=== PATIENT | female | born 1955 | race Caucasian/White ===

== ENCOUNTER 2017-09-18 07:24 | Outpatient (CLI) | payer OTHER ==
--- NOTE | 2017-09-24 12:11 | Mammography Report ---
EXAM: Digital bilateral screening mammogram 09/18/2017. CLINICAL INDICATION: A 61-year-old for screening. COMPARISON: 04/22, 10/22, 10/21, 02/15, 08/17, 02/14, 01/15. TECHNIQUE: Routine CC and MLO projections were obtained of the breasts; bilateral laterally exaggerated craniocaudal views. FINDINGS: The breasts again demonstrate heterogeneously dense fibroglandular parenchyma bilaterally. Coarse and punctate, typically benign calcifications are present. No suspicious masses, clustered microcalcifications, or regions of architectural distortion are identified. IMPRESSION: Benign findings. RECOMMENDATIONS: Routine annual screening unless otherwise clinically indicated. BIRADS category 2 - Benign findings. STANDARD QUALIFYING STATEMENTS 1. This examination was reviewed with the aid of Computed Aided Detection (CAD). 2. A negative x-ray report should not delay biopsy if a dominant or clinically suspicious mass is present. More than 5% of cancers are not identified by x-ray. 3. Dense breasts may obscure an underlying neoplasm. TD: 09/19/2017 15:41 VICTORIA
== END 2017-09-18 07:25 | disposition home or self-care (01) ==
LOC: DI 07:24
PROVIDERS: ATTEND Specialist
DX: Z12.31 Encounter for screening mammogram for malignant neoplasm of breast (principal)
CPT/HCPCS: 77067

== ENCOUNTER 2018-05-02 08:05 | Outpatient (CLI) | payer OTHER | END 2018-05-02 08:06 | disposition home or self-care (01) | LOC: LAB 08:05 | PROVIDERS: ATTEND Physician Assistant | DX: R74.8 Abnormal levels of other serum enzymes (principal) | CPT/HCPCS: 36415; 80076; 82728; 83540; 84443; 84466; 85025; 86317; 86704; 86708; 86803; 87340 ==

== ENCOUNTER 2018-05-03 10:58 | Outpatient (CLI) | payer OTHER ==
[2018-05-03 19:08] LABS: BASOPHILS % (AUTO) 0.6 %; EOSINOPHILS # (AUTO) 0.1 10^3/uL (0.0-0.7); EOSINOPHILS % (AUTO) 1.4 %; LYMPHOCYTES # (AUTO) 1.7 10^3/uL (1.5-3.5); LYMPHOCYTES % (AUTO) 36.3 %; MEAN CORPUSCULAR HEMOGLOBIN 36.1 pg (27.0-31.0); MEAN CORPUSCULAR HGB CONC 34.7 g/dL (32.0-36.0); MEAN CORPUSCULAR VOLUME 104.1 fL (81.0-99.0); MEAN PLATELET VOLUME 9.1 fL (7.9-10.8); MONOCYTES # (AUTO) 0.2 10^3/uL (0.0-1.0); MONOCYTES % (AUTO) 4.6 %; NEUTROPHILS # (AUTO) 2.6 10^3/uL (1.5-6.6); NEUTROPHILS % (AUTO) 57.1 %; PLT - PLATELET COUNT 223 10^3/uL (130-450); RED BLOOD COUNT 3.88 10^6/uL (4.20-5.40); RED CELL DISTRIBUTION WIDTH 13.1 % (12.0-15.0); WHITE BLOOD COUNT 4.6 x10^3/uL (4.8-10.8)
[2018-05-03 19:55] LABS: THYROID STIMULATING HORMONE 1.29 uIU/mL (0.34-5.60)
[2018-05-03 19:59] LABS: FERRITIN 390.5 ng/mL (11.0-306.8)
[2018-05-03 20:07] LABS: BILIRUBIN,DIRECT 0.2 mg/dL (0.1-0.5); BILIRUBIN,TOTAL 2.2 mg/dL (0.2-1.0); TOTAL PROTEIN 6.8 g/dL (6.7-8.2)
[2018-05-04 13:16] LABS: HEPATITIS A AB TOTAL(IMMUNITY) REACTIVE (NON-REACTIVE); HEPATITIS B CORE AB TOTAL NON-REACTIVE (NON-REACTIVE); HEPATITIS B SURFACE ANTIGEN NON-REACTIVE (NON-REACTIVE); HEPATITIS C ANTIBODY NON-REACTIVE (NON-REACTIVE)
== END 2018-05-03 10:59 | disposition home or self-care (01) ==
LOC: LAB.N 10:58
PROVIDERS: ATTEND Physician Assistant
DX: R74.8 Abnormal levels of other serum enzymes (principal)
CPT/HCPCS: 36415; 80076; 82728; 83540; 84443; 84466; 85025; 86317; 86704; 86708; 86803; 87340

== ENCOUNTER 2018-05-16 08:00 | Outpatient (CLI) | payer OTHER ==
[2018-05-16 13:22] LABS: ALBUMIN 4.4 g/dL (3.2-5.5); ALBUMIN/GLOBULIN RATIO 1.9 (1.0-2.2); ALKALINE PHOSPHATASE 118 IU/L (42-121); ALT ALANINE AMINOTRANSFERASE 62 IU/L (10-60); AST ASPARTATE AMINOTRANSFERASE 51 IU/L (10-42); BILIRUBIN,TOTAL 1.9 mg/dL (0.2-1.0); BUN - BLOOD UREA NITROGEN 15 mg/dL (6-20); CALCIUM 9.5 mg/dL (8.5-10.3); CARBON DIOXIDE - CO2 28 mmol/L (21-32); CHLORIDE 101 mmol/L (101-111); CHOL/HDL RATIO 4.3 (<4.4); CHOLESTEROL 136 mg/dL; CREATININE 1.1 mg/dL (0.4-1.0); GFR - MDRD 50 (>89); GLUCOSE 104 mg/dL (70-100); HDL CHOLESTEROL 32 mg/dL; LDL CHOLESTEROL,CALCULATED 64 mg/dL; SODIUM 139 mmol/L (135-145); TOTAL PROTEIN 6.7 g/dL (6.7-8.2); URIC ACID 7.9 mg/dL (2.6-7.2); VLDL CHOLESTEROL 40 mg/dL
== END 2018-05-16 08:01 | disposition home or self-care (01) ==
LOC: LAB.N 08:00
PROVIDERS: ATTEND Physician Assistant
DX: I10 Essential (primary) hypertension (principal); R73.01 Impaired fasting glucose; E78.2 Mixed hyperlipidemia; E66.9 Obesity, unspecified
CPT/HCPCS: 36415; 80053; 80061; 83721; 84550

== ENCOUNTER 2018-06-11 08:00 | Outpatient (CLI) | payer OTHER ==
[2018-06-11 19:30] LABS: ALBUMIN 4.4 g/dL (3.2-5.5); BILIRUBIN,DIRECT 0.3 mg/dL (0.1-0.5); BILIRUBIN,TOTAL 1.5 mg/dL (0.2-1.0)
[2018-06-11 20:16] LABS: FOLATE > 49.60 ng/mL (5.90 - >24.8)
== END 2018-06-11 08:01 | disposition home or self-care (01) ==
LOC: LAB.N 08:00
PROVIDERS: ATTEND Physician Assistant
DX: R10.9 Unspecified abdominal pain (principal); R74.8 Abnormal levels of other serum enzymes
CPT/HCPCS: 36415; 80076; 82607; 82746

== ENCOUNTER 2018-11-07 09:00 | Outpatient (CLI) | payer OTHER ==
--- NOTE | 2018-11-08 09:14 | Mammography Report ---
Reason: SCREENING MAMMO Procedure Date: 11/07/2018 Accession Number: [id number] / [id number] Procedure: [facility] - Screening Mammo w/Jay CPT Code: FULL RESULT: EXAM: Screening Mammo w/Jay DATE: 11/07/2018 9:29 AM CLINICAL HISTORY: Screening encounter. No reported risk factors. TECHNIQUE: Bilateral CC, laterally exaggerated CC, MLO views were obtained. COMPARISON: 09/18/2017 through 10/10/2013. FINDINGS: The breasts demonstrate scattered fibroglandular densities bilaterally. Coarse typically benign calcifications are again seen. No suspicious masses, clustered microcalcifications, or regions of architectural distortion are identified. IMPRESSION: Benign findings RECOMMENDATION: Routine annual screening unless otherwise clinically indicated. BIRADS CATEGORY 2: Benign findings STANDARD QUALIFYING STATEMENTS: 1. This examination was not reviewed with the aid of Computer-Aided Detection (CAD). 2. A negative or benign imaging report should not preclude biopsy if clinically suspicious findings are present. 3. Dense breasts may obscure an underlying neoplasm. 4. This examination was reviewed with the aid of 3D breast imaging (tomosynthesis).
== END 2018-11-07 09:01 | disposition home or self-care (01) ==
LOC: DI 09:00
DX: Z12.31 Encounter for screening mammogram for malignant neoplasm of breast (principal)
CPT/HCPCS: 77063; 77067

== ENCOUNTER 2018-12-27 08:50 | Outpatient (CLI) | payer OTHER ==
[2018-12-27 13:15] LABS: ALBUMIN 4.3 g/dL (3.2-5.5); BILIRUBIN,DIRECT 0.2 mg/dL (0.1-0.5); BILIRUBIN,TOTAL 2.1 mg/dL (0.2-1.0); TOTAL PROTEIN 6.7 g/dL (6.7-8.2)
== END 2018-12-27 23:59 | disposition home or self-care (01) ==
LOC: LAB.N 08:50
PROVIDERS: ATTEND Physician Assistant
DX: R74.8 Abnormal levels of other serum enzymes (principal)
CPT/HCPCS: 36415; 80076

== ENCOUNTER 2019-08-30 11:09 | Outpatient (CLI) | payer OTHER ==
[2019-08-30 11:38] LABS: ALBUMIN 4.6 g/dL (3.2-5.5); BILIRUBIN,DIRECT 0.3 mg/dL (0.1-0.5); BILIRUBIN,TOTAL 2.3 mg/dL (0.2-1.0); TOTAL PROTEIN 7.2 g/dL (6.7-8.2)
== END 2019-08-30 11:10 | disposition home or self-care (01) ==
LOC: LAB 11:09
PROVIDERS: ATTEND Physician Assistant
DX: R74.8 Abnormal levels of other serum enzymes (principal)
CPT/HCPCS: 36415; 80076

== ENCOUNTER 2019-09-24 08:18 | Outpatient (CLI) | payer OTHER ==
[2019-09-24 09:09] LABS: ALBUMIN 4.4 g/dL (3.2-5.5); BILIRUBIN,DIRECT 0.2 mg/dL (0.1-0.5); TOTAL PROTEIN 7.4 g/dL (6.7-8.2)
== END 2019-09-24 08:19 | disposition home or self-care (01) ==
LOC: LAB 08:18
PROVIDERS: ATTEND Physician Assistant
DX: K76.0 Fatty (change of) liver, not elsewhere classified (principal); R74.8 Abnormal levels of other serum enzymes
CPT/HCPCS: 36415; 80076

== ENCOUNTER 2020-04-05 08:13 | Outpatient (CLI) | payer OTHER ==
[2020-04-05 08:57] LABS: HGB - HEMOGLOBIN 14.6 g/dL (12.0-16.0); MEAN CORPUSCULAR HEMOGLOBIN 34.8 pg (27.0-31.0); MEAN CORPUSCULAR HGB CONC 35.4 g/dL (32.0-36.0); MEAN CORPUSCULAR VOLUME 98.3 fL (81.0-99.0); MEAN PLATELET VOLUME 10.1 fL (7.9-10.8); RED BLOOD COUNT 4.2 10^6/uL (4.20-5.40); RED CELL DISTRIBUTION WIDTH 12.3 % (12.0-15.0); WHITE BLOOD COUNT 4.6 x10^3/uL (4.8-10.8)
[2020-04-05 09:11] LABS: ALBUMIN 4.3 g/dL (3.2-5.5); BILIRUBIN,TOTAL 1.7 mg/dL (0.2-1.0); CALCIUM 9.5 mg/dL (8.5-10.3); CREATININE 1.2 mg/dL (0.4-1.0); TOTAL PROTEIN 6.5 g/dL (6.7-8.2)
[2020-04-05 09:17] LABS: BILIRUBIN,DIRECT 0.3 mg/dL (0.1-0.5); BILIRUBIN,INDIRECT 1.3 mg/dL; BILIRUBIN,TOTAL 1.6 mg/dL (0.2-1.0); CHOL/HDL RATIO 5.3 (<4.4); CHOLESTEROL 174 mg/dL; HDL CHOLESTEROL 33 mg/dL; LDL CHOLESTEROL,CALCULATED 95 mg/dL; LDL/HDL RATIO 2.9 (<4.4); VLDL CHOLESTEROL 46 mg/dL
== END 2020-04-05 08:14 | disposition home or self-care (01) ==
LOC: LAB 08:13
PROVIDERS: ATTEND Nurse Practitioner Family
DX: K76.0 Fatty (change of) liver, not elsewhere classified (principal); R79.89 Other specified abnormal findings of blood chemistry; R74.8 Abnormal levels of other serum enzymes
CPT/HCPCS: 36415; 80053; 80061; 80076; 82247; 82248; 83721; 85027

== ENCOUNTER 2020-05-20 15:46 | Outpatient (CLI) | payer OTHER ==
[2020-05-20 16:01] LABS: BILIRUBIN,URINE NEGATIVE (NEGATIVE); GLUCOSE, URINE (UA) NEGATIVE (NEGATIVE); KETONES,URINE (UA) NEGATIVE (NEGATIVE); LEUKOCYTE ESTERASE, URINE NEGATIVE (NEGATIVE); NITRITE,URINE NEGATIVE (NEGATIVE); OCCULT BLOOD,URINE NEGATIVE (NEGATIVE); PH,URINE 5.5 PH (5.0-7.5); PROTEIN,URINE NEGATIVE (NEGATIVE); UROBILINOGEN,URINE 1 (NORMAL) E.U./dL (NORMAL)
[2020-05-20 16:08] LABS: CLARITY,URINE CLEAR (CLEAR)
[2020-05-20 16:09] LABS: BACTERIA,URINE Few /HPF (None Seen); RBC,URINE None Seen /HPF (0-5); SQUAMOUS EPITHELIAL CELL,UR MANY Squamous (<= Few)
== END 2020-05-20 15:47 | disposition home or self-care (01) ==
LOC: LAB 15:46
PROVIDERS: ATTEND Nurse Practitioner Family
DX: R10.2 Pelvic and perineal pain (principal)
CPT/HCPCS: 81001

== ENCOUNTER 2020-08-09 14:07 | Outpatient (CLI) | payer OTHER ==
[2020-08-09 14:58] LABS: CALCIUM 9.8 mg/dL (8.5-10.3); CREATININE 1.1 mg/dL (0.4-1.0)
== END 2020-08-09 14:08 | disposition home or self-care (01) ==
LOC: LAB 14:07
PROVIDERS: ATTEND Nurse Practitioner Family
DX: R94.4 Abnormal results of kidney function studies (principal)
CPT/HCPCS: 36415; 80048

== ENCOUNTER 2020-09-20 08:24 | Outpatient (CLI) | payer OTHER ==
[2020-09-20 09:52] LABS: ALBUMIN 4.2 g/dL (3.2-5.5); BILIRUBIN,DIRECT 0.3 mg/dL (0.1-0.5); BILIRUBIN,TOTAL 2.3 mg/dL (0.2-1.0); TOTAL PROTEIN 6.7 g/dL (6.7-8.2)
== END 2020-09-20 08:25 | disposition home or self-care (01) ==
LOC: LAB 08:24
PROVIDERS: ATTEND Physician Assistant
DX: R74.8 Abnormal levels of other serum enzymes (principal); K76.0 Fatty (change of) liver, not elsewhere classified
CPT/HCPCS: 36415; 80076; 82247; 82248

== ENCOUNTER 2020-09-24 08:55 | Outpatient (CLI) | payer OTHER | END 2020-09-24 08:56 | disposition home or self-care (01) | LOC: LAB 08:55 | PROVIDERS: ATTEND Physician Assistant | DX: R74.8 Abnormal levels of other serum enzymes (principal) | CPT/HCPCS: 82947 ==

== ENCOUNTER 2020-10-20 18:56 | Outpatient (CLI) | payer OTHER ==
--- NOTE | 2020-10-21 12:28 | Ultrasound Report ---
PROCEDURE: Retroperitoneal INDICATIONS: HX OF UTI TECHNIQUE: Real-time scanning was performed of the retroperitoneal organs, with image documentation. COMPARISON: None. FINDINGS: Kidneys: Kidneys are normal in size. Right kidney measures 11.1 cm long; left kidney measures 11.5 cm long. Right renal cortical thickness is 1.3 cm; left renal cortical thickness is 1.4 cm. No kaye d masses, hydronephrosis, or nephrolithiasis. There is a 5 mm echogenic focus near the superior pole of the right kidney without associated vascularity. No posterior shadowing or ring down artifact. Urinary bladder volume measured approximately 33 mL. The patient bladder was not distended despite dr inking 30 ounces of fluid. Post for residual volume not measured. The ureteral jets were not imaged. Miscellaneous: No free abdominal fluid. IMPRESSION: 1. Unremarkable sonographic appearance of the bilateral kidneys without evidence for obstructive urop athy. 2. Nonspecific, nonvascular 5 mm echogenic focus in the superior pole the right kidney which may repr esent possible nephrolith versus small angiomyolipoma. No suspicious features identified. Routine fol low-up imaging not required. Reviewed by: Gerard Rios MD on 10/21/2020 11:27 AM [facility] Approved by: Gerard Rios MD on 10/21/2020 11:27 AM [facility] Station ID: [id number]
== END 2020-10-20 18:57 | disposition home or self-care (01) ==
LOC: DI 18:56
PROVIDERS: ATTEND Urology
DX: Z87.440 Personal history of urinary (tract) infections (principal)

== ENCOUNTER 2020-10-24 12:00 | Outpatient (CLI) | payer OTHER ==
[2020-10-24 12:18] LABS: BILIRUBIN,URINE NEGATIVE (NEGATIVE); GLUCOSE, URINE (UA) NEGATIVE (NEGATIVE); KETONES,URINE (UA) NEGATIVE (NEGATIVE); LEUKOCYTE ESTERASE, URINE NEGATIVE (NEGATIVE); NITRITE,URINE NEGATIVE (NEGATIVE); OCCULT BLOOD,URINE NEGATIVE (NEGATIVE); PH,URINE 5.5 PH (5.0-7.5); PROTEIN,URINE NEGATIVE (NEGATIVE); UROBILINOGEN,URINE 0.2 (NORMAL) E.U./dL (NORMAL)
[2020-10-24 12:23] LABS: BACTERIA,URINE None Seen /HPF (None Seen); CLARITY,URINE CLEAR (CLEAR); RBC,URINE None Seen /HPF (0-5); SQUAMOUS EPITHELIAL CELL,UR RARE Squamous (<= Few)
[2020-10-24 12:29] LABS: BASOPHILS # (AUTO) 0.1 10^3/uL (0.0-0.1); BASOPHILS % (AUTO) 1.3 %; EOSINOPHILS # (AUTO) 0.1 10^3/uL (0.0-0.7); EOSINOPHILS % (AUTO) 2.2 %; HGB - HEMOGLOBIN 14.8 g/dL (12.0-16.0); LYMPHOCYTES # (AUTO) 1.7 10^3/uL (1.5-3.5); LYMPHOCYTES % (AUTO) 35.5 %; MEAN CORPUSCULAR HEMOGLOBIN 35.6 pg (27.0-31.0); MEAN CORPUSCULAR HGB CONC 36.8 g/dL (32.0-36.0); MEAN CORPUSCULAR VOLUME 96.6 fL (81.0-99.0); MONOCYTES # (AUTO) 0.4 10^3/uL (0.0-1.0); MONOCYTES % (AUTO) 9.2 %; NEUTROPHILS # (AUTO) 2.4 10^3/uL (1.5-6.6); NEUTROPHILS % (AUTO) 51.6 %; PLT - PLATELET COUNT 233 10^3/uL (130-450); RED BLOOD COUNT 4.16 10^6/uL (4.20-5.40); RED CELL DISTRIBUTION WIDTH 12.4 % (12.0-15.0); WHITE BLOOD COUNT 4.7 x10^3/uL (4.8-10.8)
[2020-10-24 12:46] LABS: ALBUMIN 4.6 g/dL (3.2-5.5); PHOSPHORUS 3.3 mg/dL (2.5-4.6)
== END 2020-10-24 12:01 | disposition home or self-care (01) ==
LOC: LAB 12:00
PROVIDERS: ATTEND Internal Medicine Nephrology
DX: R79.9 Abnormal finding of blood chemistry, unspecified (principal)
CPT/HCPCS: 36415; 80069; 81001; 83970; 85025; 87086

== ENCOUNTER 2021-06-01 14:23 | Outpatient (CLI) | payer OTHER ==
--- NOTE | 2021-06-02 13:25 | Mammography Report ---
BILATERAL DIGITAL SCREENING MAMMOGRAM 3D/2D: 06/01/2021 CLINICAL: Routine screening. Comparison is made to exams dated: 11/07/2018 mammogram, 09/18/2017 mammogram, 04/13/2016 mammogram, mammogram, 10/10/2013 mammogram, and 02/28/2011 mammogram - [facility]. The t issue of both breasts is predominantly fatty. No significant masses, calcifications, or other findings are seen in either breast. There has been no significant interval change. IMPRESSION: NEGATIVE There is no mammographic evidence of malignancy. A 1 year screening mammogram is recommended. This exam was interpreted at Station ID: [id number]. NOTE: For mammograms, a report in lay terms will be sent to the patient. Approximately 15% of breast malignancies will not be visualized mammographically. In the management of a palpable breast mass, a negative mammogram must not discourage biopsy of a clinically suspicious lesion. Electronically Signed By: Jaiden Olivas M.D., jr/joselin:06/01/2021 16:20:04 ACR BI-RADS Category 1: Negative 3341F PARENCHYMAL PATTERN: (F) - The breast(s) demonstrate(s) diffuse fatty replacement. BI-RADS CATEGORY: (1) - 1 RECOMMENDATION: (ANNUAL) - Recommend routine annual screening mammography. [id number] 1 year screening LATERALITY: (B)
== END 2021-06-01 14:24 | disposition home or self-care (01) ==
LOC: DI 14:23
DX: Z12.31 Encounter for screening mammogram for malignant neoplasm of breast (principal)

== ENCOUNTER 2021-09-07 11:50 | Outpatient (CLI) | payer OTHER ==
[2021-09-07 12:27] LABS: BASOPHILS # (AUTO) 0.1 10^3/uL (0.0-0.1); BASOPHILS % (AUTO) 1.3 %; EOSINOPHILS # (AUTO) 0.1 10^3/uL (0.0-0.7); EOSINOPHILS % (AUTO) 2.6 %; HCT - HEMATOCRIT 39.7 % (37.0-47.0); HGB - HEMOGLOBIN 14.6 g/dL (12.0-16.0); LYMPHOCYTES # (AUTO) 1.6 10^3/uL (1.5-3.5); LYMPHOCYTES % (AUTO) 34.8 %; MEAN CORPUSCULAR HEMOGLOBIN 35.9 pg (27.0-31.0); MEAN CORPUSCULAR HGB CONC 36.8 g/dL (32.0-36.0); MEAN CORPUSCULAR VOLUME 97.5 fL (81.0-99.0); MONOCYTES # (AUTO) 0.4 10^3/uL (0.0-1.0); MONOCYTES % (AUTO) 7.7 %; NEUTROPHILS # (AUTO) 2.5 10^3/uL (1.5-6.6); NEUTROPHILS % (AUTO) 53.4 %; PLT - PLATELET COUNT 228 10^3/uL (130-450); RED BLOOD COUNT 4.07 10^6/uL (4.20-5.40); RED CELL DISTRIBUTION WIDTH 12.4 % (12.0-15.0); WHITE BLOOD COUNT 4.7 x10^3/uL (4.8-10.8)
[2021-09-07 12:35] LABS: ALBUMIN 4.6 g/dL (3.2-5.5); CALCIUM 9.6 mg/dL (8.5-10.3); CREATININE 1.1 mg/dL (0.4-1.0); PHOSPHORUS 2.9 mg/dL (2.5-4.6)
== END 2021-09-07 11:51 | disposition home or self-care (01) ==
LOC: LAB 11:50
PROVIDERS: ATTEND Internal Medicine Nephrology
DX: N18.31 Chronic kidney disease, stage 3a (principal); R79.89 Other specified abnormal findings of blood chemistry
CPT/HCPCS: 36415; 80069; 85025

== ENCOUNTER 2021-11-23 07:47 | Outpatient (CLI) | payer OTHER ==
--- NOTE | 2021-11-23 11:46 | Ultrasound Report ---
PROCEDURE: Retroperitoneal INDICATIONS: RIGHT INGUINAL PAIN TECHNIQUE: Real-time scanning was performed of the retroperitoneal organs, with image documentation. COMPARISON: None. Findings: Kidneys: Kidneys are normal in size. Right kidney measures 11.1 cm long; left kidney measures 11.3 cm long. Right renal cortical thickness is 1.25 cm; left renal cortical thickness is 1.33 cm. No so lid masses, hydronephrosis. Echogenic focus measures 7 x 4 x 7 mm in size is seen in upper pole of ri ght kidney without internal vascularity. Bladder: Prevoid volume is 69.2 cc. Postvoid residual is 6.7 cc. Bilateral ureteral jets are noted. N o bladder wall thickening or discrete bladder wall mass. IMPRESSION: 1. Suggestion of a 7 x 4 x 7 mm nonobstructing stone in upper pole of right kidney. No solid appearin g renal lesion or hydronephrosis. 2. Normal appearing urinary bladder. Reviewed by: Jesus Santana MD on 11/23/2021 11:45 AM PST Approved by: Jesus Santana MD on 11/23/2021 11:45 AM PST Station ID: [id number]
== END 2021-11-23 07:48 | disposition home or self-care (01) ==
LOC: DI 07:47
PROVIDERS: ATTEND Urology
DX: Z87.440 Personal history of urinary (tract) infections (principal)

== ENCOUNTER 2021-12-14 08:19 | Outpatient (CLI) | payer OTHER ==
--- NOTE | 2021-12-14 09:06 | DEXA Report ---
PROCEDURE: Dexa Spine and/or Hip INDICATIONS: ASYMPTOMATIC MENOPAUSAL STATE TECHNIQUE: Dual energy x-ray absorptiometry (DXA) was performed on a [employer] System. Regions measur ed are the AP Spine, femoral neck, and if needed forearm. COMPARISON: None. FINDINGS: Lumbar Spine: Bone Mineral Density 1.112 g/cm/cm,T score -0.6, normal Left Femoral Neck: Bone Mineral Density 0.778 g/cm/cm, T score -1.9, osteopenia Total : Bone Mineral Density 0.901 g/cm/cm, T score -0.8, normal (T score greater or equal to -1.0: NORMAL) (T score from -1.1 to -2.4: OSTEOPENIA) (T score less than or equal to -2.5 to: OSTEOPOROSIS) Impression: Bone mineral density as detailed above. Patients with diagnosis of osteoporosis or osteopenia should have regular bone mineral density assess ment. For those eligible for Medicare, routine testing is allowed once every 2 years. Testing frequ ency can be increased for patients who have rapidly progressing disease or for those who are receivin g medical therapy to restore bone mass. Reviewed by: Rashi Hicks MD on 12/14/2021 9:04 AM PST Approved by: Rashi Hicks MD on 12/14/2021 9:04 AM PST Station ID: [id number]
== END 2021-12-14 08:20 | disposition home or self-care (01) ==
LOC: DI 08:19
PROVIDERS: ATTEND Nurse Practitioner Family
DX: Z78.0 Asymptomatic menopausal state (principal); M85.88 Other specified disorders of bone density and structure, other site

== ENCOUNTER 2022-10-30 10:09 | Outpatient (CLI) | payer MEDICARE, OTHER ==
[2022-10-30 10:30] LABS: BASOPHILS # (AUTO) 0.1 10^3/uL (0.0-0.1); BASOPHILS % (AUTO) 1.3 %; EOSINOPHILS # (AUTO) 0.1 10^3/uL (0.0-0.7); EOSINOPHILS % (AUTO) 2.7 %; HCT - HEMATOCRIT 43.2 % (37.0-47.0); HGB - HEMOGLOBIN 15.2 g/dL (12.0-16.0); LYMPHOCYTES # (AUTO) 1.2 10^3/uL (1.5-3.5); LYMPHOCYTES % (AUTO) 27.6 %; MEAN CORPUSCULAR HEMOGLOBIN 34.3 pg (27.0-31.0); MEAN CORPUSCULAR HGB CONC 35.2 g/dL (32.0-36.0); MEAN CORPUSCULAR VOLUME 97.5 fL (81.0-99.0); MEAN PLATELET VOLUME 9.9 fL (7.9-10.8); MONOCYTES # (AUTO) 0.4 10^3/uL (0.0-1.0); NEUTROPHILS # (AUTO) 2.6 10^3/uL (1.5-6.6); NEUTROPHILS % (AUTO) 59.2 %; PLT - PLATELET COUNT 239 10^3/uL (130-450); RED BLOOD COUNT 4.43 10^6/uL (4.20-5.40); RED CELL DISTRIBUTION WIDTH 12.3 % (12.0-15.0); WHITE BLOOD COUNT 4.5 x10^3/uL (4.8-10.8)
[2022-10-30 10:49] LABS: ALBUMIN 4.4 g/dL (3.2-5.5); CALCIUM 9.7 mg/dL (8.5-10.3); CREATININE 1.1 mg/dL (0.4-1.0); PHOSPHORUS 4.1 mg/dL (2.5-4.6); POTASSIUM 4.2 mmol/L (3.5-5.0)
[2022-10-30 15:45] LABS: CREATININE,URINE 105.9 mg/dL; MICROALBUM/CREATININE RATIO,UR 3.8 ug/mg (<30.0); MICROALBUMIN,URINE 0.4 mg/dL (0-300.0)
== END 2022-10-30 10:10 | disposition home or self-care (01) ==
LOC: LAB 10:09
PROVIDERS: ATTEND Internal Medicine Nephrology
DX: N18.31 Chronic kidney disease, stage 3a (principal)
CPT/HCPCS: 36415; 80069; 82043; 82570; 83970; 85025

== ENCOUNTER 2023-05-09 10:15 | Outpatient (CLI) | payer MEDICARE, OTHER ==
--- NOTE | 2023-05-10 09:19 | Mammography Report ---
BILATERAL DIGITAL SCREENING MAMMOGRAM 3D/2D: 05/09/2023 Comparison is made to exams dated: 05/15/2022 mammogram, 06/01/2021 mammogram, 11/07/2018 mammogram, 09/2017 mammogram, 04/13/2016 mammogram, and 10/29/2014 mammogram - [facility]. Both breasts are heterogeneously dense, which may obscure small masses (category c / 51-75% glandular tissue). No significant masses, calcifications, or other findings are seen in either breast. There has been no significant interval change. IMPRESSION: NEGATIVE There is no mammographic evidence of malignancy. A 1 year screening mammogram is recommended. Based on the Tyrer Cuzick model (a risk assessment model) the patients lifetime risk is 8.6% and her 10 year risk is 4.5%. According to the ACR, ACS, and NCCN guidelines, an annual breast MRI exam [place] with mammogram is recommended if the patients lifetime risk is 20% or greater. This exam was interpreted at Station ID: [id number]. NOTE: For mammograms, a report in lay terms will be sent to the patient. Approximately 15% of breast malignancies will not be visualized mammographically. In the management of a palpable breast mass, a negative mammogram must not discourage biopsy of a clinically suspicious lesion. Electronically Signed By: Natalie garcia/joselin:05/09/2023 16:35:37 letter sent: No_Letter ACR BI-RADS Category 1: Negative 3341F PARENCHYMAL PATTERN: (D) - The breast(s) demonstrate(s) heterogeneously dense fibroglandular claudia mauro. BI-RADS CATEGORY: (1) - 1 Mammogram [id number] 1 year screening LATERALITY: (B)
== END 2023-05-09 10:16 | disposition home or self-care (01) ==
LOC: DI 10:15
DX: Z12.31 Encounter for screening mammogram for malignant neoplasm of breast (principal)

== ENCOUNTER 2024-05-03 08:47 | Emergency (ER) | payer MEDICARE, OTHER ==
--- NOTE | 2024-05-03 09:20 | ED Physician Documentation ---
PD HPI ABD PAIN - Stated complaint Stated Complaint: ABD PX, FEMALE - Chief complaint Chief Complaint: Abd Pain - History obtained from History obtained from: Patient - Additional information Additional information: 68-year-old woman with history of cholecystectomy has not had a good BM in 4 days. She is not sure why the change took place. She is in her usual state routine. She now is abdominal and back discomfort. She has tried laxatives without relief. PD PAST MEDICAL HISTORY - Past Medical History Past Medical History: Yes Cardiovascular: Hypertension - Past Surgical History Past Surgical History: Yes Ortho: Knee replacement - Present Medications Home Medications: Ambulatory Orders Medication Instructions Recorded Confirmed Amlodipine Besylate [Norvasc] 1 tab PO DAILY 05/03/24 05/03/24 Atorvastatin [Lipitor] 1 tab PO DAILY 05/03/24 05/03/24 Dicyclomine [Bentyl] 1 - 2 tab PO QID PRN #20 cap 05/03/24 Donepezil [Aricept] 10 mg PO DAILY 05/03/24 05/03/24 Fluticasone [Flonase] 1 sprays FANNIE BID PRN 05/03/24 05/03/24 Lisinopril [Zestril] 1 tab PO DAILY 05/03/24 05/03/24 allopurinoL [Allopurinol] 1 tab PO DAILY 05/03/24 05/03/24 - Allergies Allergies/Adverse Reactions: Allergies Allergy/AdvReac Type Severity Reaction Status Date / Time No Known Drug Allergies Allergy Verified 05/03/24 09:00 - Social History Does the pt smoke?: No Smoking Status: Never smoker Does the pt drink ETOH?: Yes Does the pt have substance abuse?: No - Immunizations Immunizations are current?: Yes - POLST Patient has POLST: No PD ED PE NORMAL - Vitals Vital signs reviewed: Yes - General General: Alert and oriented X 3, No acute distress - Abdomen Abdomen: Other (Hypoactive bowel sounds without significant tenderness.) - Rectal Rectal: Other (With Payal emergency medical technician basic, no stool in the vault) - Neuro Neuro: Alert and oriented X 3, Normal speech Eye Opening: Spontaneous Motor: Obeys Commands Verbal: Oriented GCS Score: 15 - Psych Psych: Normal mood, Normal affect Results - Vitals Vitals: Vital Signs - 24 hr 05/03/24 05/03/24 08:56 11:00 Temperature 84 C H Heart Rate 81 78 Respiratory 20 18 Rate Blood Pressure 107/78 132/88 H O2 Saturation 97 98 Oxygen O2 Source Room air - Labs Labs: Laboratory Tests 05/03/24 05/03/24 09:34 09:34 WBC 4.1 L RBC 4.43 Hgb 15.1 Hct 43.3 MCV 97.7 MCH 34.1 H MCHC 34.9 RDW 12.2 Plt Count 245 MPV 10.5 Neut # (Auto) 2.6 Lymph # (Auto) 1.1 L Crenshaw # (Auto) 0.3 Eos # (Auto) 0.1 Baso # (Auto) 0.1 Absolute Nucleated RBC 0.00 Nucleated RBC % 0.0 Sodium 139 Potassium 3.9 Chloride 104 Carbon Dioxide 29 Anion Gap 6.0 BUN 15 Creatinine 1.2 Estimated GFR (MDRD) 45 L Glucose 127 H Calcium 10.1 Total Bilirubin 2.6 H AST 33 ALT 35 Alkaline Phosphatase 143 H Total Protein 6.9 Albumin 4.7 Globulin 2.2 Albumin/Globulin Ratio 2.1 - Rads (name of study) CT A/P Relevant Findings:: Final report received, EMP independent interpretation of test PD Medical Decision Making - ED course ED course: Her symptoms sounded most like a fecal impaction, that said there is no stool within fingers reach in the rectal vault so I will send her for imaging. She presents with a sensation of constipation with small bowel movements and wonders if she might be obstructed. Clinically she is not tender and has no fecal impaction within fingers reach. Subsequently testing was done with a CBC showing mild lymphopenia, CMP showing elevated bilirubin which is a chronic finding for her and a negative CT scan save for hepatic steatosis which she was already aware of. We will trial some Bentyl pending follow-up. Departure - Departure Disposition: Home, Self Care Clinical Impression: Abdominal pain Condition: Good Record reviewed to determine appropriate education?: Yes Instructions: ED Abdominal Pain Female Non-Specific Abdominal Pain Prescriptions: Dicyclomine [Bentyl] 1 - 2 tab PO QID PRN #20 cap PRN Reason: Abdominal Pain Comments: As discussed, your CAT scan was normal, other than the fatty liver which you are already aware of. And your labs were generally unremarkable other than mild elevation in your bilirubin which is a chronic finding for you. There was not a lot of stool on the CAT scan so wonder if you might be having colonic spasms and we are trialing a medication for that. Talk with your primary care physici an about fresh referral for colonoscopy (you have not had 1 at [facility] in the past.) Return for new or worsening symptoms. Forms: PCP List
[2024-05-03 09:53] LABS: BASOPHILS # (AUTO) 0.1 10^3/uL (0.0-0.1); BASOPHILS % (AUTO) 1.2 %; EOSINOPHILS # (AUTO) 0.1 10^3/uL (0.0-0.7); EOSINOPHILS % (AUTO) 2.2 %; HCT - HEMATOCRIT 43.3 % (37.0-47.0); HGB - HEMOGLOBIN 15.1 g/dL (12.0-16.0); LYMPHOCYTES # (AUTO) 1.1 10^3/uL (1.5-3.5); LYMPHOCYTES % (AUTO) 25.7 %; MEAN CORPUSCULAR HEMOGLOBIN 34.1 pg (27.0-31.0); MEAN CORPUSCULAR HGB CONC 34.9 g/dL (32.0-36.0); MEAN CORPUSCULAR VOLUME 97.7 fL (81.0-99.0); MEAN PLATELET VOLUME 10.5 fL (7.9-10.8); MONOCYTES # (AUTO) 0.3 10^3/uL (0.0-1.0); MONOCYTES % (AUTO) 7.3 %; NEUTROPHILS # (AUTO) 2.6 10^3/uL (1.5-6.6); NEUTROPHILS % (AUTO) 63.1 %; PLT - PLATELET COUNT 245 10^3/uL (130-450); RED BLOOD COUNT 4.43 10^6/uL (4.20-5.40); RED CELL DISTRIBUTION WIDTH 12.2 % (12.0-15.0); WHITE BLOOD COUNT 4.1 x10^3/uL (4.8-10.8)
[2024-05-03 10:07] LABS: ALBUMIN 4.7 g/dL (3.2-5.5); ALBUMIN/GLOBULIN RATIO 2.1 (1.0-2.2); BILIRUBIN,TOTAL 2.6 mg/dL (0.2-1.0); CALCIUM 10.1 mg/dL (8.5-10.3); CREATININE 1.2 mg/dL (0.6-1.3); POTASSIUM 3.9 mmol/L (3.5-4.5); TOTAL PROTEIN 6.9 g/dL (6.4-8.9)
[2024-05-03] MEDS ORDERED: iohexoL-300 100 ML VIAL ONE (10:13)
[2024-05-03] MEDS: iohexoL-300 100 ML VIAL IVP ONE (11:06)
[2024-05-03 11:15] VITALS: O2SAT 98
--- NOTE | 2024-05-03 11:34 | CT Report ---
PROCEDURE: Abdomen/Pelvis W INDICATIONS: iv only abd pain TECHNIQUE: Helical axial CT of the abdomen and pelvis was obtained after intravenous contrast adminis tration and reformatted in multiple planes. Radiation dose reduction was achieved using automated exp osure control or adjustment of mA and/or kV according to patient size. COMPARISON: None FINDINGS: Lower thorax: The lung bases are clear. Heart size normal. No hiatal hernia. Liver: Hepatic fatty infiltration Biliary system: Cholecystectomy Pancreas: Unremarkable without mass or inflammation evident. Spleen: Normal in size and density. Adrenals: Normal morphology and density. Reproductive system: Unremarkable as visualized. Urinary system: Normal renal size and attenuation. No renal calculi, hydronephrosis, or solid mass p resent. Urinary bladder unremarkable. Gastrointestinal system: Mild to moderate to fecal debris throughout the colon Peritoneal spaces: No mesenteric or retroperitoneal adenopathy. No free air. No free fluid. Vasculature: The IVC, aorta and iliac vasculature are unremarkable. Abdominal wall: Abdominal wall is intact without evidence of ventral or inguinal hernias. Musculoskeletal: Normal bone mineralization. No acute fractures. IMPRESSION: No acute CT findings in the abdomen and pelvis. Mild to moderate debris throughout the colon without obstruction Hepatic fatty infiltration Reviewed by: Malcolm Mercado MD on 05/03/2024 10:33 AM [facility] Approved by: Malcolm Mercado MD on 05/03/2024 10:33 AM [facility] Station ID: [id number]
[2024-05-03 11:54] VITALS: BP 147/72
== END 2024-05-03 11:55 | disposition home or self-care (01) ==
LOC: ED 08:47
DX: R10.9 Unspecified abdominal pain (principal); I10 Essential (primary) hypertension; Z79.899 Other long term (current) drug therapy
CPT/HCPCS: 36415; 74177; 80053; 85025; 99284; Q9967

== ENCOUNTER 2024-05-09 13:55 | Outpatient (CLI) | payer MEDICARE, OTHER ==
--- NOTE | 2024-05-12 08:24 | Mammography Report ---
BILATERAL DIGITAL SCREENING MAMMOGRAM 3D/2D: 05/09/2024 CLINICAL: Routine screening. Comparison is made to exams dated: 05/09/2023 mammogram, 05/15/2022 mammogram, 06/01/2021 mammogram, and 11/07/2018 mammogram - [facility]. Both breasts are heterogeneously dense, which may obscure small masses (category c / 51-75% glandular tissue). No significant masses, calcifications, or other findings are seen in either breast. There has been no significant interval change. IMPRESSION: NEGATIVE There is no mammographic evidence of malignancy. A 1 year screening mammogram is recommended. Based on the Tyrer Cuzick model (a risk assessment model) the patient's lifetime risk is 8.1% and her 10 year risk is 4.5%. According to the ACR, ACS, and NCCN guidelines, an annual breast MRI exam [place] with mammogram is recommended if the patient's lifetime risk is 20% or greater. This exam was interpreted at Station ID: [id number]. NOTE: For mammograms, a report in lay terms will be sent to the patient. Approximately 15% of breast malignancies will not be visualized mammographically. In the management of a palpable breast mass, a negative mammogram must not discourage biopsy of a clinically suspicious lesion. Electronically Signed By: Abdiaziz hammond/joselin:05/09/2024 16:43:23 letter sent: No_Letter ACR BI-RADS Category 1: Negative 3341F PARENCHYMAL PATTERN: (D) - The breast(s) demonstrate(s) heterogeneously dense fibroglandular claudia mauro. BI-RADS CATEGORY: (1) - 1 RECOMMENDATION: (ANNUAL) - Recommend routine annual screening mammography. [id number] 1 year screening LATERALITY: (B)
== END 2024-05-09 13:56 | disposition home or self-care (01) ==
LOC: DI 13:55
DX: Z12.31 Encounter for screening mammogram for malignant neoplasm of breast (principal); R92.333 Mammographic heterogeneous density, bilateral breasts

== ENCOUNTER 2024-06-17 12:45 | Day surgery (SDC) | payer MEDICARE, OTHER ==
[2024-06-17] MEDS ORDERED: LIDOCAINE-MPF 2% 5 ML VIAL ONE (13:46)
[2024-06-17] MEDS ORDERED: PROPOFOL 500 MG/50 ML 500 MG/50 ML VIAL ONE (13:46)
--- NOTE | 2024-06-17 14:39 | ANESTHESIA ---
Pre-Anesthesia VS, & Labs - Diagnosis screening - Procedure colonoscopy Height: 5 ft 3 in Weight (kg): 88.3 kg Body Mass Index: 34.4 BMI Classification: Obese - NPO >8 hours - Is Patient ?: No Home Medications and Allergies Amlodipine Besylate [Norvasc] 1 tab PO DAILY 05/03/24 Atorvastatin [Lipitor] 1 tab PO DAILY 05/03/24 Donepezil [Aricept] 10 mg PO DAILY 05/03/24 Fluticasone [Flonase] 1 sprays FANNIE BID PRN 05/03/24 Lisinopril [Zestril] 1 tab PO DAILY 05/03/24 allopurinoL [Allopurinol] 1 tab PO DAILY 05/03/24 Allergies/Adverse Reactions: Allergies Allergy/AdvReac Type Severity Reaction Status Date / Time No Known Drug Allergies Allergy Verified 05/03/24 09:00 Anes History & Medical History - Anesthetic History Anesthesia Complications: reports: No previous complications, Pseudocholinesterase deficiency Family history of Malignant Hyperthermia: Denies - Medical History Cardiovascular: reports: Hypertension Pulmonary: reports: Other (seasonal allergies) Gastrointestinal: reports: None Urinary: reports: None Neuro: reports: None Musculoskeletal: reports: None Endocrine/Autoimmune: reports: None Blood Disorders: reports: None Skin: reports: None Smoking Status: Never smoker Psychosocial: reports: No issues indicated History of Cancer?: No - Surgical History Orthopedic: reports: Knee replacement Exam General: Alert, Oriented x3, Cooperative Dental: WNL Mouth Openin Fingerbreadth Neck Mobility: Normal Mallampati classification: II Thyromental Distance: 4-6 cm Respiratory: Lungs clear Plan Anesthesia Type: General, Total IV Consent for Procedure(s) Verified and Reviewed: Yes Code Status: Attempt Resuscitation ASA classification: 2-Mild systemic disease Is this case an emergency?: No
[2024-06-17] MEDS: SIMETHICONE 40 MG/0.6 ML 30 ML BOTTLE PO ONE (14:43)
[2024-06-17] MEDS: LACTATED RINGERS 600 ML IV ONE (14:55)
--- NOTE | 2024-06-17 17:24 | ANESTHESIA POST OP EVALUATION ---
Anesthesia Post Eval - Post Anesthesia Eval CV Function Including HR & BP: Stable Pain Control: Satisfactory Nausea & Vomiting: Negative Mental Status: Baseline Respiratory Status: Airway Patent Hydration Status: Satisfactory Anesthesia Complications: None
== END 2024-06-17 12:46 | disposition home or self-care (01) ==
LOC: SDS 12:45
PROVIDERS: ATTEND Surgery
PROC: 0DBP8ZZ Excision of Rectum, Via Natural or Artificial Opening Endoscopic (ICD-10-PCS; principal; 2024-06-17 14:45)
DX: Z12.11 Encounter for screening for malignant neoplasm of colon (principal); K62.1 Rectal polyp; E66.9 Obesity, unspecified; Z68.34 Body mass index [BMI] 34.0-34.9, adult; I10 Essential (primary) hypertension
CPT/HCPCS: 45380; A9270; J7120